=== PATIENT | male | born 1945 | race Two or more races ===

== ENCOUNTER 2016-12-11 11:35 | Inpatient (IN) | payer OTHER ==
[~2016-12-11] VITALS: Ht 177.8 cm; Wt 101.6 kg
[2016-12-11 12:37] LABS: Basophils # (auto) 0 uL; Basophils % (auto) 0.2 % (0.0-2.0); Eosinophils # (auto) 0 uL; Eosinophils % (auto) 0.2 % (0.0-7.0); Hematocrit 49.2 % (41.0-53.0); Hemoglobin 16.5 g/dL (13.5-17.5); Lymphocytes # (auto) 0.8 uL; Lymphocytes % (auto) 11.8 % (10.0-50.0); Mean Corpuscular Hemoglobin 30.1 pg (28.0-32.0); Mean Corpuscular Hgb Conc. 33.5 g/dL (32.0-36.0); Mean Corpuscular Volume 89.9 fL (80.0-100.0); Mean Platelet Volume 9.2 fL (7.4-10.4); Monocytes # (auto) 0.5 uL; Monocytes % (auto) 7.9 % (0.0-12.0); Neutrophils # (auto) 5.1 uL; Neutrophils % (auto) 79.9 % (37.0-80.0); Platelet Count (auto) 156 10^3/uL (140-450); White Blood Cell 6.4 10^3/uL (4.4-10.8)
[2016-12-11 12:59] LABS: Albumin 3.5 g/dL (3.4-5.0); BUN/Creatinine Ratio 13.5; Bilirubin, Total 0.4 mg/dL (0.2-1.0); Calcium 8.4 mg/dL (8.5-10.1); Magnesium 1.9 mg/dL (1.6-2.6); Potassium 3.4 mmol/L (3.5-5.1); Total Protein 7.2 g/dL (6.4-8.2)
[2016-12-11] MEDS ORDERED: ALBUTEROL SULF 2.5 MG/0.5ML(0.5%) NEB SOLN NEB STA (13:02)
[2016-12-11] MEDS ORDERED: cefTRIAXone 1GM/50ML D5W 50 ML IV ONE (13:15)
[2016-12-11] MEDS ORDERED: methylPREDNISolone SOD SUCC 125 MG/2 ML VL IV ONE (13:15)
[2016-12-11] MEDS ORDERED: IPRATROPIUM BROM 0.5 MG/2.5ML INH SOL NEB ONE (13:15)
[2016-12-11 13:30] LABS: REFLEX LACTIC ACID YES OR NO YES
[2016-12-11 14:02] LABS: B-Type Natriuretic Peptide 54.94 pg/mL (0-100)
[2016-12-11 14:07] LABS: Temperature: 22.5 C (20.0-25.0)
[2016-12-11] MEDS: SODIUM CHLORIDE 0.9% 1,000 ML IV SCH ×2 (15:51→19:29)
[2016-12-11] MEDS ORDERED: OSELTAMIVIR 75 MG CAP PO ONE (16:00)
[2016-12-11] MEDS ORDERED: POTASSIUM CHL 20 Meq TABLET PO ONE (16:00)
[2016-12-11] MEDS ORDERED: PROMETHAZINE HCL 25 MG/ML 1ML IV PRN (16:00)
[2016-12-11] MEDS ORDERED: ACETAMINOPHEN 500 MG TAB PO PRN (16:00)
[2016-12-11] MEDS ORDERED: NITROGLYCERIN 0.4 MG SL TAB SL PRN (16:00)
[2016-12-11] MEDS ORDERED: TEMAZEPAM 15 MG CAP PO PRN (16:00)
[2016-12-11] MEDS ORDERED: LACTULOSE 20Gm/30ML SOLN PO PRN (16:00)
[2016-12-11] MEDS ORDERED: MORPHINE SULF INJ 2 MG/ML SYRINGE 1ML IV PRN ×2 (16:00)
[2016-12-11] MEDS ORDERED: ALBUTEROL SULF 2.5 MG/0.5ML(0.5%) NEB SOLN NEB PRN (16:00)
[2016-12-11] MEDS ORDERED: HYDROcodone-ACET 5/325MG TAB PO PRN (16:00)
[2016-12-11] MEDS: ENOXAPARIN SOD 40 MG/0.4 ML SYRINGE SC SCH (16:04)
[2016-12-11] MEDS ORDERED: DOXYCYCLINE HYC 100MG/250ML 250 ML IV ONE (16:15)
[2016-12-11] MEDS ORDERED: NICOTINE 21MG/24 HR TOPICAL PATCH TD ONE (17:45)
[2016-12-11] MEDS: methylPREDNISolone SOD SUCC 40 MG/ML VL IV SCH (18:11)
[2016-12-11] MEDS: ALBUTEROL SULF 2.5 MG/0.5ML(0.5%) NEB SOLN NEB SCH (19:15)
[2016-12-11] MEDS: IPRATROPIUM BROM 0.5 MG/2.5ML INH SOL NEB SCH (19:15)
[2016-12-11 20:35] VITALS: BP 105/66
[2016-12-11] MEDS ORDERED: PNEUMOCOCCAL VACC POLYS 25 MCG/0.5 ML VIAL IM SCH (22:15)
[2016-12-11] MEDS: OSELTAMIVIR 75 MG CAP PO SCH (22:17)
[2016-12-11 23:10] LABS: Urine RBC None Seen /hpf (0 - 3)
[2016-12-11 23:21] LABS: Urine Bilirubin Negative (Negative); Urine Blood Negative /uL (Negative); Urine Color Yellow (Yellow); Urine Ketone Negative (Negative); Urine Nitrite Negative (Negative); Urine Squamous Epithelial Cell FEW /hpf (<5); Urine Urobilinogen Normal (Negative)
[2016-12-11 23:22] LABS: Urine Glucose 4+ mg/dL (Normal)
[2016-12-12] MEDS: methylPREDNISolone SOD SUCC 40 MG/ML VL IV SCH ×5 (00:37→23:56)
[2016-12-12] MEDS: IPRATROPIUM BROM 0.5 MG/2.5ML INH SOL NEB SCH ×4 (01:00→18:35)
[2016-12-12] MEDS: ALBUTEROL SULF 2.5 MG/0.5ML(0.5%) NEB SOLN NEB SCH ×4 (01:00→18:35)
[2016-12-12 04:38] VITALS: BP 118/80
[2016-12-12] MEDS: DOXYCYCLINE HYC 100MG/250ML 250 ML IV SCH ×2 (05:39→18:04)
[2016-12-12] MEDS ORDERED: INFLUENZA QUAD 2016-2017 0.5 ML SYRG IM ONE (06:45)
[2016-12-12 08:00] VITALS: BP 142/88
[2016-12-12] MEDS ORDERED: ALPR0.25 PO ×2 (08:44→08:48)
[2016-12-12] MEDS ORDERED: ATOR20TA PO (08:44)
[2016-12-12] MEDS ORDERED: LISI-646 PO (08:44)
[2016-12-12] MEDS: OSELTAMIVIR 75 MG CAP PO SCH ×2 (09:57→21:40)
[2016-12-12] MEDS: ENOXAPARIN SOD 40 MG/0.4 ML SYRINGE SC SCH (09:58)
[2016-12-12 11:57] VITALS: BP 142/88
[2016-12-12] MEDS ORDERED: LISINOPRIL 20 MG TAB PO ONE (12:45)
[2016-12-12 13:00] VITALS: BP 133/79
[2016-12-12] MEDS: LORazepam 0.5 MG TAB PO PRN (14:09)
[2016-12-12 17:00] VITALS: BP 119/81
[2016-12-12] MEDS: SODIUM CHLORIDE 0.9% 1,000 ML IV SCH (18:11)
[2016-12-12] MEDS ORDERED: NICOTINE 14 MG/24HR TOPICAL PATCH TD ONE (18:15)
[2016-12-12 21:45] VITALS: BP 136/83
[2016-12-12] MEDS ORDERED: ATORVASTATIN 20 MG TAB PO SCH (22:00)
[2016-12-13] MEDS: ALBUTEROL SULF 2.5 MG/0.5ML(0.5%) NEB SOLN NEB SCH ×2 (00:13→07:29)
[2016-12-13] MEDS: IPRATROPIUM BROM 0.5 MG/2.5ML INH SOL NEB SCH ×2 (00:13→07:29)
[2016-12-13 04:36] VITALS: BP 114/76
[2016-12-13] MEDS: SODIUM CHLORIDE 0.9% 1,000 ML IV SCH (04:58)
[2016-12-13] MEDS: DOXYCYCLINE HYC 100MG/250ML 250 ML IV SCH (05:34)
[2016-12-13] MEDS: methylPREDNISolone SOD SUCC 40 MG/ML VL IV SCH ×2 (05:34→12:00)
[2016-12-13 08:00] VITALS: BP 143/93
[2016-12-13] MEDS ORDERED: LISINOPRIL 20 MG TAB PO SCH (10:00)
[2016-12-13] MEDS ORDERED: POTASSIUM CHL 20 Meq TABLET PO ONE (10:00)
[2016-12-13] MEDS ORDERED: NICOTINE 14 MG/24HR TOPICAL PATCH TD SCH (10:00)
[2016-12-13 10:05] VITALS: BP 133/73
[2016-12-13] MEDS: OSELTAMIVIR 75 MG CAP PO SCH (10:20)
[2016-12-13] MEDS: ENOXAPARIN SOD 40 MG/0.4 ML SYRINGE SC SCH (10:21)
[2016-12-13] MEDS: LORazepam 0.5 MG TAB PO PRN (10:40)
== END 2016-12-13 11:07 | disposition home or self-care (01) | DRG 190 ==
LOC: ER 11:38 → TELE-WESTW 11:39 → WEST WING 12-12 02:14 → TELE-WESTW 12-12 10:51
PROVIDERS: ADMIT Internal Medicine; ATTEND Family Medicine
DX: J44.0 Chronic obstructive pulmonary disease with (acute) lower respiratory infection (principal); J18.9 Pneumonia, unspecified organism; J10.00 Influenza due to other identified influenza virus with unspecified type of pneumonia; E87.1 Hypo-osmolality and hyponatremia; J44.1 Chronic obstructive pulmonary disease with (acute) exacerbation; E87.6 Hypokalemia; E11.65 Type 2 diabetes mellitus with hyperglycemia; F41.9 Anxiety disorder, unspecified; E78.5 Hyperlipidemia, unspecified; I10 Essential (primary) hypertension; F17.210 Nicotine dependence, cigarettes, uncomplicated; Z82.49 Family history of ischemic heart disease and other diseases of the circulatory system; Z83.3 Family history of diabetes mellitus; Z23 Encounter for immunization
CPT/HCPCS: 36415; 36600; 71020; 80053; 81001; 82805; 83605; 83735; 83880; 84484; 85025; 85049; 87040; 87070; 87205; 87400; 93005; 94640; 96365; 96366; 96367; 96375; J0696; J3490

== ENCOUNTER → 2017-03-01 | Outpatient (CLI) | payer OTHER ==
[~2017-03-01] MED LIST: ALPR0.25 PO; ATOR20TA PO; LISI-646 PO
[2017-03-01 12:05] LABS: BUN/Creatinine Ratio 16.8; Potassium 4.3 mmol/L (3.5-5.1)
== END | disposition home or self-care (01) ==
LOC: LAB 11:19
PROVIDERS: ATTEND Internal Medicine
DX: E78.2 Mixed hyperlipidemia (principal); I10 Essential (primary) hypertension
CPT/HCPCS: 36415; 80048; 83036

== ENCOUNTER → 2017-04-04 | Outpatient (CLI) | payer OTHER ==
[~2017-04-04] MED LIST changes: +ALBUTEROL SULF 2.5 MG/0.5ML(0.5%) NEB SOLN ONE
== END | disposition home or self-care (01) ==
LOC: RT 11:06
PROVIDERS: ATTEND Internal Medicine
DX: J44.9 Chronic obstructive pulmonary disease, unspecified (principal)
CPT/HCPCS: 94060

== ENCOUNTER → 2018-02-07 | Outpatient (CLI) | payer OTHER ==
[~2018-02-07] MED LIST changes: -ALBUTEROL SULF 2.5 MG/0.5ML(0.5%) NEB SOLN ONE
[2018-02-07 10:06] LABS: Basophils # (auto) 0.1 uL; Basophils % (auto) 0.7 % (0.0-2.0); Eosinophils # (auto) 0.1 uL; Eosinophils % (auto) 0.8 % (0.0-7.0); Hematocrit 47.9 % (41.0-53.0); Hemoglobin 16.4 g/dL (13.5-17.5); Lymphocytes % (auto) 38.4 % (10.0-50.0); Mean Corpuscular Hemoglobin 31.3 pg (28.0-32.0); Mean Corpuscular Hgb Conc. 34.3 g/dL (32.0-36.0); Mean Corpuscular Volume 91.3 fL (80.0-100.0); Monocytes # (auto) 0.6 uL; Monocytes % (auto) 7.8 % (0.0-12.0); Neutrophils # (auto) 4.1 uL; Neutrophils % (auto) 52.3 % (37.0-80.0); Nucleated Red Blood Cells % 0.1 %; Platelet Count (auto) 323 10^3/uL (140-450); Red Blood Cells 5.25 10^6/uL (4.5-5.90); Red Cell Distribution Width 13.8 % (11.8-14.3); White Blood Cell 7.9 10^3/uL (4.4-10.8)
[2018-02-07 10:26] LABS: Albumin 3.8 g/dL (3.4-5.0); BUN/Creatinine Ratio 20.2; Bilirubin, Total 0.7 mg/dL (0.2-1.0); Calcium 8.6 mg/dL (8.5-10.1); Potassium 4.2 mmol/L (3.5-5.1); Total Protein 7.5 g/dL (6.4-8.2)
== END | disposition home or self-care (01) ==
LOC: LAB 09:48
PROVIDERS: ATTEND Physician Assistant
DX: J42 Unspecified chronic bronchitis (principal); E78.2 Mixed hyperlipidemia; R73.03 Prediabetes
CPT/HCPCS: 36415; 80053; 80061; 83036; 85025

== ENCOUNTER → 2018-03-30 | Outpatient (CLI) | payer OTHER | END | disposition home or self-care (01) | LOC: LAB 14:38 | PROVIDERS: ATTEND Physician Assistant | DX: I10 Essential (primary) hypertension (principal); F41.1 Generalized anxiety disorder; E78.2 Mixed hyperlipidemia; R35.1 Nocturia; R73.03 Prediabetes; R53.82 Chronic fatigue, unspecified | CPT/HCPCS: 36415; 84153; 84403 ==

== ENCOUNTER → 2018-11-27 | Outpatient (CLI) | payer OTHER ==
[2018-11-27 09:58] LABS: Basophils # (auto) 0.1 uL; Basophils % (auto) 0.7 % (0.0-2.0); Eosinophils # (auto) 0.1 uL; Eosinophils % (auto) 1.3 % (0.0-7.0); Hematocrit 50.7 % (41.0-53.0); Hemoglobin 16.9 g/dL (13.5-17.5); Lymphocytes # (auto) 3.1 uL; Lymphocytes % (auto) 37.2 % (10.0-50.0); Mean Corpuscular Hemoglobin 30.1 pg (28.0-32.0); Mean Corpuscular Hgb Conc. 33.3 g/dL (32.0-36.0); Mean Corpuscular Volume 90.6 fL (80.0-100.0); Monocytes # (auto) 0.5 uL; Neutrophils # (auto) 4.5 uL; Neutrophils % (auto) 54.8 % (37.0-80.0); Nucleated Red Blood Cells % 0.2 %; Platelet Count (auto) 361 10^3/uL (140-450); White Blood Cell 8.2 10^3/uL (4.4-10.8)
[2018-11-27 10:20] LABS: Albumin 3.6 g/dL (3.4-5.0); BUN/Creatinine Ratio 20.4; Calcium 8.6 mg/dL (8.5-10.1); Potassium 3.8 mmol/L (3.5-5.1)
[2018-11-27 10:24] LABS: Bilirubin, Total 0.4 mg/dL (0.2-1.0); Total Protein 7.1 g/dL (6.4-8.2)
== END | disposition home or self-care (01) ==
LOC: LAB 09:36
PROVIDERS: ATTEND Physician Assistant
DX: Z12.5 Encounter for screening for malignant neoplasm of prostate (principal); I10 Essential (primary) hypertension; J44.9 Chronic obstructive pulmonary disease, unspecified; R73.03 Prediabetes; E78.2 Mixed hyperlipidemia; F10.180 Alcohol abuse with alcohol-induced anxiety disorder
CPT/HCPCS: 36415; 80053; 80061; 83036; 84153; 85025

== ENCOUNTER → 2020-01-21 | Outpatient (CLI) | payer OTHER ==
[2020-01-21 08:10] LABS: Eosinophils # (auto) 0.2 uL; Hemoglobin 17.7 g/dL (13.5-17.5); Monocytes # (auto) 0.5 uL; Nucleated Red Blood Cells % 0.2 %
[2020-01-21 08:12] LABS: Basophils # (auto) 0.1 uL; Basophils % (auto) 0.8 % (0.0-2.0); Eosinophils % (auto) 2.4 % (0.0-7.0); Hematocrit 51.9 % (41.0-53.0); Lymphocytes # (auto) 2.2 uL; Lymphocytes % (auto) 31.6 % (10.0-50.0); Mean Corpuscular Hemoglobin 30.7 pg (28.0-32.0); Mean Corpuscular Volume 90.3 fL (80.0-100.0); Monocytes % (auto) 6.6 % (0.0-12.0); Neutrophils # (auto) 4.2 uL; Neutrophils % (auto) 58.6 % (37.0-80.0); Platelet Count (auto) 311 10^3/uL (140-450); Red Blood Cells 5.75 10^6/uL (4.5-5.90); Red Cell Distribution Width 14.6 % (11.8-14.3); White Blood Cell 7.1 10^3/uL (4.4-10.8)
[2020-01-21 08:58] LABS: Albumin 3.7 g/dL (3.4-5.0); Calcium 8.6 mg/dL (8.5-10.1)
[2020-01-21 09:02] LABS: BUN/Creatinine Ratio 13.3; Bilirubin, Total 0.7 mg/dL (0.2-1.0); Total Protein 7.2 g/dL (6.4-8.2)
== END | disposition home or self-care (01) ==
LOC: LAB 07:27
PROVIDERS: ATTEND Physician Assistant
DX: E78.2 Mixed hyperlipidemia (principal); I10 Essential (primary) hypertension; R35.1 Nocturia; R53.82 Chronic fatigue, unspecified; F10.180 Alcohol abuse with alcohol-induced anxiety disorder
CPT/HCPCS: 36415; 80053; 80061; 84153; 85025

== ENCOUNTER → 2020-09-16 | Outpatient (CLI) | payer OTHER ==
[~2020-09-16] MED LIST changes: +ALBUTEROL SULF 2.5 MG/0.5ML(0.5%) NEB SOLN ONE
== END | disposition home or self-care (01) ==
LOC: RT 09:06
PROVIDERS: ATTEND Internal Medicine Pulmonary Disease
DX: J44.9 Chronic obstructive pulmonary disease, unspecified (principal)
CPT/HCPCS: 94060; 94618; 94727; 94729

== ENCOUNTER → 2021-02-11 | Outpatient (CLI) | payer OTHER ==
[~2021-02-11] MED LIST changes: -ALBUTEROL SULF 2.5 MG/0.5ML(0.5%) NEB SOLN ONE
== END | disposition home or self-care (01) ==
LOC: LAB 12:15
PROVIDERS: ATTEND Physician Assistant
DX: L57.0 Actinic keratosis (principal)

== ENCOUNTER → 2021-02-25 | Outpatient (CLI) | payer OTHER ==
[2021-02-25 10:46] LABS: Basophils # (auto) 0.1 10 ^3/uL (0-0.2); Eosinophils # (auto) 0.1 10 ^3/uL (0-0.8); Eosinophils % (auto) 0.9 % (0.0-7.0); Hematocrit 49.8 % (41.0-53.0); Hemoglobin 17.2 g/dL (13.5-17.5); Lymphocytes # (auto) 1.5 10 ^3/uL (0.4-5.4); Mean Corpuscular Hemoglobin 32.1 pg (28.0-32.0); Mean Corpuscular Hgb Conc. 34.5 g/dL (32.0-36.0); Mean Corpuscular Volume 93.1 fL (80.0-100.0); Monocytes # (auto) 0.5 10 ^3/uL (0-1.3); Neutrophils # (auto) 4.4 10 ^3/uL (1.6-8.6); Neutrophils % (auto) 67.1 % (37.0-80.0); Nucleated Red Blood Cells % 0.2 %; Platelet Count (auto) 300 10^3/uL (140-450); Red Blood Cells 5.35 10^6/uL (4.5-5.90); Red Cell Distribution Width 15.2 % (11.8-14.3); White Blood Cell 6.6 10^3/uL (4.4-10.8)
[2021-02-25 11:14] LABS: Calcium 8.5 mg/dL (8.5-10.1); Potassium 4.3 mmol/L (3.5-5.1)
[2021-02-25 11:23] LABS: Albumin 3.8 g/dL (3.4-5.0); BUN/Creatinine Ratio 21.8; Bilirubin, Total 0.5 mg/dL (0.2-1.0); Total Protein 7.5 g/dL (6.4-8.2)
== END | disposition home or self-care (01) ==
LOC: LAB 10:35
PROVIDERS: ATTEND Physician Assistant
DX: I10 Essential (primary) hypertension (principal); R35.1 Nocturia; E78.2 Mixed hyperlipidemia; J44.9 Chronic obstructive pulmonary disease, unspecified
CPT/HCPCS: 36415; 80053; 80061; 84153; 85025

== ENCOUNTER 2021-10-18 15:29 | Inpatient (IN) | payer OTHER ==
[~2021-10-18] VITALS: Ht 175.3 cm; Wt 77.1 kg
[~2021-10-18 15:29] MED LIST changes: -LISI-646 PO; +LISI20TA28 PO
[2021-10-18 17:19] LABS: Basophils # (auto) 0 10 ^3/uL (0-0.2); Eosinophils # (auto) 0 10 ^3/uL (0-0.8); Lymphocytes # (auto) 2.1 10 ^3/uL (0.4-5.4); Mean Corpuscular Hemoglobin 30.9 pg (28.0-32.0); Monocytes # (auto) 0.7 10 ^3/uL (0-1.3); Nucleated Red Blood Cells % 0.2 %
[2021-10-18 17:21] LABS: Basophils % (auto) 0.6 % (0.0-2.0); Eosinophils % (auto) 0.3 % (0.0-7.0); Hematocrit 54.3 % (41.0-53.0); Hemoglobin 18.2 g/dL (13.5-17.5); Lymphocytes % (auto) 25.2 % (10.0-50.0); Mean Corpuscular Hgb Conc. 33.6 g/dL (32.0-36.0); Mean Corpuscular Volume 92.1 fL (80.0-100.0); Monocytes % (auto) 8.2 % (0.0-12.0); Neutrophils # (auto) 5.6 10 ^3/uL (1.6-8.6); Neutrophils % (auto) 65.7 % (37.0-80.0); Red Cell Distribution Width 14.5 % (11.8-14.3); White Blood Cell 8.5 10^3/uL (4.4-10.8)
[2021-10-18 17:37] LABS: Albumin 3.4 g/dL (3.4-5.0); Anion Gap 10 (5-15); Blood Urea Nitrogen 23 mg/dL (7-18); Calcium 8.8 mg/dL (8.5-10.1); Carbon Dioxide 24 mmol/L (21-32); Chloride 104 mmol/L (98-107); Glucose 99 mg/dL (74-106); Potassium 3.7 mmol/L (3.5-5.1); Sodium 138 mmol/L (136-145)
[2021-10-18 17:39] LABS: Alanine Aminotransferase 35 U/L (16-61); Aspartate Aminotransferase 16 U/L (15-37); GFR African American 95 mL/min; GFR Non-African American 79 mL/min
[2021-10-18 17:40] LABS: Alkaline Phosphatase 69 U/L (45-117); Bilirubin, Total 0.7 mg/dL (0.2-1.0); Total Protein 7.2 g/dL (6.4-8.2)
[2021-10-18 18:01] LABS: BUN/Creatinine Ratio 23.2
[2021-10-19] VITALS (7 sets, daily range): BP systolic 110–138; BP diastolic 74–84
[2021-10-19] MEDS ORDERED: ALBUTEROL SULF 2.5 MG/0.5ML(0.5%) NEB SOLN NEB ONE (01:15)
[2021-10-19] MEDS ORDERED: predniSONE 20 MG TAB PO ONE (01:15)
[2021-10-19] MEDS ORDERED: IPRATROPIUM BROM 0.5 MG/2.5ML INH SOL NEB ONE (01:15)
[2021-10-19] MEDS ORDERED: ONDANSETRON HCL 4 MG/2 ML VIAL IV PRN (04:45)
[2021-10-19] MEDS ORDERED: ACETAMINOPHEN 325 MG TAB PO PRN (04:45)
[2021-10-19] MEDS ORDERED: ALBUTEROL SULF 2.5 MG/0.5ML(0.5%) NEB SOLN NEB PRN (04:45)
[2021-10-19] MEDS ORDERED: IPRATROPIUM BROM 0.5 MG/2.5ML INH SOL NEB PRN (04:45)
[2021-10-19] MEDS ORDERED: cefTRIAXone 1GM/50ML D5W 50 ML IV ONE (05:30)
[2021-10-19] MEDS ORDERED: AZITHROMYCIN 500MG/ 250ML 250 ML IV ONE (05:30)
[2021-10-19] MEDS ORDERED: ALBUAER3 IN (07:51)
[2021-10-19] MEDS ORDERED: IPRIH INH (07:51)
[2021-10-19] MEDS ORDERED: METO25TA5 PO (07:51)
[2021-10-19] MEDS: ENOXAPARIN SOD 40 MG/0.4 ML SYRINGE SC SCH (09:07)
[2021-10-19] MEDS ORDERED: PANTOPRAZOLE 40 MG TAB PO SCH (10:00)
[2021-10-19] MEDS: LISINOPRIL 20 MG TAB PO SCH (11:07)
[2021-10-19] MEDS: methylPREDNISolone SOD SUCC 40 MG/ML VL IV SCH ×2 (11:08→22:00)
[2021-10-19] MEDS: IPRATROPIUM BROM 0.5 MG/2.5ML INH SOL NEB SCH ×3 (14:00→22:05)
[2021-10-19] MEDS: ALBUTEROL SULF 2.5 MG/0.5ML(0.5%) NEB SOLN NEB SCH ×3 (14:00→22:05)
[2021-10-19] MEDS ORDERED: AMLO-489 PO (15:06)
[2021-10-19] MEDS: ALPRAZolam 0.25 MG TAB PO PRN (16:13)
[2021-10-19] MEDS ORDERED: ATORVASTATIN 20 MG TAB PO SCH (22:00)
[2021-10-20] VITALS (7 sets, daily range): BP systolic 97–128; BP diastolic 55–84
[2021-10-20] MEDS: ALBUTEROL SULF 2.5 MG/0.5ML(0.5%) NEB SOLN NEB SCH ×6 (02:25→22:36)
[2021-10-20] MEDS: IPRATROPIUM BROM 0.5 MG/2.5ML INH SOL NEB SCH ×6 (02:25→22:36)
[2021-10-20 06:26] LABS: Basophils # (auto) 0 10 ^3/uL (0-0.2); Eosinophils # (auto) 0 10 ^3/uL (0-0.8); Hematocrit 47.3 % (41.0-53.0); Hemoglobin 16.3 g/dL (13.5-17.5); Lymphocytes # (auto) 0.8 10 ^3/uL (0.4-5.4); Lymphocytes % (auto) 7.4 % (10.0-50.0); Mean Corpuscular Hgb Conc. 34.4 g/dL (32.0-36.0); Mean Corpuscular Volume 92.9 fL (80.0-100.0); Monocytes # (auto) 0.2 10 ^3/uL (0-1.3); Neutrophils # (auto) 9.2 10 ^3/uL (1.6-8.6); Neutrophils % (auto) 90.6 % (37.0-80.0); Nucleated Red Blood Cells % 0.1 %; Red Blood Cells 5.09 10^6/uL (4.5-5.90); Red Cell Distribution Width 14.2 % (11.8-14.3); White Blood Cell 10.1 10^3/uL (4.4-10.8)
[2021-10-20 06:47] LABS: Potassium 4.5 mmol/L (3.5-5.1)
[2021-10-20 07:02] LABS: BUN/Creatinine Ratio 26.7; Calcium 8.4 mg/dL (8.5-10.1); Magnesium 3.3 mg/dL (1.6-2.6)
[2021-10-20] MEDS: methylPREDNISolone SOD SUCC 40 MG/ML VL IV SCH ×2 (09:18→22:05)
[2021-10-20] MEDS: LISINOPRIL 20 MG TAB PO SCH (09:18)
[2021-10-20] MEDS: AZITHROMYCIN 250 MG TAB PO SCH (09:18)
[2021-10-20] MEDS: ENOXAPARIN SOD 40 MG/0.4 ML SYRINGE SC SCH (09:19)
[2021-10-20] MEDS ORDERED: CHOLECALCIFEROL (VITD3) 2,000 UNIT CAP/TAB PO ONE (11:30)
[2021-10-20] MEDS ORDERED: DEXTROSE (50%) 50ML SYRG IV PRN (11:30)
[2021-10-20] MEDS ORDERED: NICOTINE 14 MG/24HR TOPICAL PATCH TD ONE (12:30)
[2021-10-20] MEDS: ACCU-CHEK COMFORT CURVE STRIP VI SCH ×3 (15:25→22:00)
[2021-10-20] MEDS: InsuLIN REG 1unit/0.01ml Soln (100units/ml) SC SCH ×3 (15:35→22:00)
[2021-10-21] MEDS: IPRATROPIUM BROM 0.5 MG/2.5ML INH SOL NEB SCH ×6 (02:27→22:06)
[2021-10-21] MEDS: ALBUTEROL SULF 2.5 MG/0.5ML(0.5%) NEB SOLN NEB SCH ×6 (02:27→22:06)
[2021-10-21 05:00] VITALS: BP 117/68
[2021-10-21] MEDS: ACCU-CHEK COMFORT CURVE STRIP VI SCH ×4 (06:59→21:51)
[2021-10-21] MEDS: InsuLIN REG 1unit/0.01ml Soln (100units/ml) SC SCH ×4 (06:59→21:51)
[2021-10-21 08:00] VITALS: BP 130/79
[2021-10-21 09:00] VITALS: BP 130/79
[2021-10-21] MEDS: methylPREDNISolone SOD SUCC 40 MG/ML VL IV SCH ×2 (09:39→22:17)
[2021-10-21] MEDS: CHOLECALCIFEROL (VITD3) 2,000 UNIT CAP/TAB PO SCH (09:40)
[2021-10-21] MEDS: NICOTINE 14 MG/24HR TOPICAL PATCH TD SCH (09:41)
[2021-10-21] MEDS: ENOXAPARIN SOD 40 MG/0.4 ML SYRINGE SC SCH (09:41)
[2021-10-21] MEDS: LISINOPRIL 20 MG TAB PO SCH (09:41)
[2021-10-21] MEDS: AZITHROMYCIN 250 MG TAB PO SCH (09:41)
[2021-10-21 13:00] VITALS: BP 127/77
[2021-10-21 17:00] VITALS: BP 154/87
[2021-10-21 21:49] VITALS: BP 142/86
[2021-10-22] VITALS (7 sets, daily range): BP systolic 114–147; BP diastolic 71–86
[2021-10-22] MEDS: ALBUTEROL SULF 2.5 MG/0.5ML(0.5%) NEB SOLN NEB SCH ×6 (03:51→22:21)
[2021-10-22] MEDS: IPRATROPIUM BROM 0.5 MG/2.5ML INH SOL NEB SCH ×6 (03:52→22:21)
[2021-10-22] MEDS: ACCU-CHEK COMFORT CURVE STRIP VI SCH ×4 (06:09→21:33)
[2021-10-22] MEDS: InsuLIN REG 1unit/0.01ml Soln (100units/ml) SC SCH ×4 (06:18→21:33)
[2021-10-22] MEDS: methylPREDNISolone SOD SUCC 40 MG/ML VL IV SCH ×2 (09:09→21:37)
[2021-10-22] MEDS: CHOLECALCIFEROL (VITD3) 2,000 UNIT CAP/TAB PO SCH (09:09)
[2021-10-22] MEDS: AZITHROMYCIN 250 MG TAB PO SCH (09:10)
[2021-10-22] MEDS: LISINOPRIL 20 MG TAB PO SCH (09:10)
[2021-10-22] MEDS: ENOXAPARIN SOD 40 MG/0.4 ML SYRINGE SC SCH (09:11)
[2021-10-22] MEDS: NICOTINE 14 MG/24HR TOPICAL PATCH TD SCH (09:11)
[2021-10-22] MEDS ORDERED: ARTIFICIAL TEARS 15ml EACHEYE PRN (11:00)
[2021-10-22] MEDS ORDERED: IOHEXOL 350 MG/ML 100ML IJ ONE (13:00)
[2021-10-22] MEDS ORDERED: ERGOCALCIFEROL 50,000 UNIT(1.25MG) CAP PO SCH (14:45)
[2021-10-22] MEDS: DOCUSATE SOD 100 MG CAP PO SCH ×2 (16:38→21:37)
[2021-10-22] MEDS: ALPRAZolam 0.25 MG TAB PO PRN (18:18)
[2021-10-23] MEDS: ALBUTEROL SULF 2.5 MG/0.5ML(0.5%) NEB SOLN NEB SCH ×4 (02:23→14:25)
[2021-10-23] MEDS: IPRATROPIUM BROM 0.5 MG/2.5ML INH SOL NEB SCH ×4 (02:23→14:25)
[2021-10-23 05:00] VITALS: BP 124/80
[2021-10-23] MEDS: ACCU-CHEK COMFORT CURVE STRIP VI SCH ×2 (06:12→12:12)
[2021-10-23] MEDS: InsuLIN REG 1unit/0.01ml Soln (100units/ml) SC SCH ×2 (06:18→12:12)
[2021-10-23] MEDS: methylPREDNISolone SOD SUCC 40 MG/ML VL IV SCH (08:46)
[2021-10-23] MEDS: DOCUSATE SOD 100 MG CAP PO SCH (08:47)
[2021-10-23] MEDS: CHOLECALCIFEROL (VITD3) 2,000 UNIT CAP/TAB PO SCH (08:47)
[2021-10-23] MEDS: LISINOPRIL 20 MG TAB PO SCH (08:48)
[2021-10-23] MEDS: ALPRAZolam 0.25 MG TAB PO PRN (08:49)
[2021-10-23] MEDS: AZITHROMYCIN 250 MG TAB PO SCH (08:49)
[2021-10-23] MEDS: NICOTINE 14 MG/24HR TOPICAL PATCH TD SCH (08:49)
[2021-10-23] MEDS: ENOXAPARIN SOD 40 MG/0.4 ML SYRINGE SC SCH (08:58)
[2021-10-23 09:00] VITALS: BP 118/85
[2021-10-23] MEDS ORDERED: CHOL20007 PO (11:37)
[2021-10-23] MEDS ORDERED: ALBUAER3 IN (11:37)
[2021-10-23] MEDS ORDERED: PRED20TA2 PO (11:37)
[2021-10-23] MEDS ORDERED: NIC21P TOP (11:37)
[2021-10-23 12:23] VITALS: BP 149/80
[2021-10-23 13:00] VITALS: BP 149/80
[2021-10-23 14:32] LABS: Calcium 8.7 mg/dL (8.5-10.1); Potassium 4.6 mmol/L (3.5-5.1)
[2021-10-23 14:34] LABS: BUN/Creatinine Ratio 28.3
== END 2021-10-23 15:25 | disposition home or self-care (01) | DRG 189 ==
LOC: EDBD 15:29 → ER 15:29 → WEST WING 15:30 → ER 10-19 06:20 → WEST WING 10-19 07:30
PROVIDERS: ADMIT Nurse Practitioner; ATTEND Internal Medicine
DX: J96.21 Acute and chronic respiratory failure with hypoxia (principal); J44.1 Chronic obstructive pulmonary disease with (acute) exacerbation; I10 Essential (primary) hypertension; E78.5 Hyperlipidemia, unspecified; Z20.822 Contact with and (suspected) exposure to COVID-19; F41.9 Anxiety disorder, unspecified; F17.210 Nicotine dependence, cigarettes, uncomplicated; E55.9 Vitamin D deficiency, unspecified; Z71.6 Tobacco abuse counseling; Z80.9 Family history of malignant neoplasm, unspecified; Z79.899 Other long term (current) drug therapy
CPT/HCPCS: 36415; 36600; 71045; 71275; 80048; 80053; 80061; 82306; 82728; 82805; 82962; 83036; 83735; 83880; 84484; 85025; 85379; 87426; 87804; 93005; 93306; 94640; 96365; 97110; 97116; 97163; 97530; G0378; J0696; J1815

== ENCOUNTER → 2022-09-01 | Outpatient (CLI) | payer OTHER ==
[~2022-09-01] MED LIST changes: +ALBUAER3 IN; +IPRIH INH; +METO25TA5 PO; +NIC21P TOP; +PRED20TA2 PO
[2022-09-01 08:13] LABS: Basophils # (auto) 0.1 10 ^3/uL (0-0.2); Basophils % (auto) 0.8 % (0.0-2.0); Eosinophils # (auto) 0.1 10 ^3/uL (0-0.8); Eosinophils % (auto) 1.2 % (0.0-7.0); Hematocrit 49.2 % (41.0-53.0); Hemoglobin 16.7 g/dL (13.5-17.5); Lymphocytes % (auto) 36.3 % (10.0-50.0); Mean Corpuscular Hemoglobin 30.9 pg (28.0-32.0); Mean Corpuscular Hgb Conc. 33.9 g/dL (32.0-36.0); Monocytes # (auto) 0.6 10 ^3/uL (0-1.3); Neutrophils # (auto) 4.6 10 ^3/uL (1.6-8.6); Neutrophils % (auto) 54.7 % (37.0-80.0); Nucleated Red Blood Cells % 0.1 %; Red Blood Cells 5.41 10^6/uL (4.5-5.90); Red Cell Distribution Width 13.1 % (11.8-14.3); White Blood Cell 8.3 10^3/uL (4.4-10.8)
[2022-09-01 08:18] LABS: Urine Blood Negative /uL (Negative)
[2022-09-01 09:01] LABS: Albumin 3.7 g/dL (3.4-5.0); Potassium 4.2 mmol/L (3.5-5.1)
[2022-09-01 09:09] LABS: BUN/Creatinine Ratio 13.1; Bilirubin, Total 0.9 mg/dL (0.2-1.0); Calcium 8.7 mg/dL (8.5-10.1); Total Protein 6.8 g/dL (6.4-8.2)
[2022-09-01 09:21] LABS: Micro Albumin < 5.00 mg/L (0-30.0)
== END | disposition home or self-care (01) ==
LOC: LAB 07:56
PROVIDERS: ATTEND Nurse Practitioner Family
DX: Z00.00 Encounter for general adult medical examination without abnormal findings (principal); E11.21 Type 2 diabetes mellitus with diabetic nephropathy; J44.9 Chronic obstructive pulmonary disease, unspecified
CPT/HCPCS: 36415; 80053; 80061; 81003; 82043; 83036; 84439; 84443; 85025

== ENCOUNTER → 2023-05-04 | Outpatient (CLI) | payer OTHER ==
[~2023-05-04] MED LIST changes: -LISI20TA28 PO; +LISI20TA56 PO
[2023-05-04 07:19] LABS: Basophils # (auto) 0.1 10 ^3/uL (0-0.2); Basophils % (auto) 0.8 % (0.0-2.0); Eosinophils # (auto) 0.1 10 ^3/uL (0-0.8); Eosinophils % (auto) 1.5 % (0.0-7.0); Hematocrit 45.8 % (41.0-53.0); Hemoglobin 16.2 g/dL (13.5-17.5); Lymphocytes # (auto) 2.2 10 ^3/uL (0.4-5.4); Lymphocytes % (auto) 31.2 % (10.0-50.0); Mean Corpuscular Hemoglobin 31.9 pg (28.0-32.0); Mean Corpuscular Hgb Conc. 35.4 g/dL (32.0-36.0); Monocytes # (auto) 0.7 10 ^3/uL (0-1.3); Monocytes % (auto) 9.7 % (0.0-12.0); Neutrophils # (auto) 3.9 10 ^3/uL (1.6-8.6); Neutrophils % (auto) 56.8 % (37.0-80.0); Nucleated Red Blood Cells % 0.1 %; Red Cell Distribution Width 13.8 % (11.8-14.3); White Blood Cell 6.9 10^3/uL (4.4-10.8)
[2023-05-04 08:58] LABS: Potassium 4.3 mmol/L (3.5-5.1)
[2023-05-04 09:06] LABS: Albumin 3.9 g/dL (3.4-5.0); BUN/Creatinine Ratio 18.9 (10.0-20.0); Bilirubin, Total 0.7 mg/dL (0.2-1.0); Calcium 8.9 mg/dL (8.5-10.1); Total Protein 7.3 g/dL (6.4-8.2)
[2023-05-04 09:49] LABS: Creatinine, Urine 74 mg/dL (30.0-125.0); Micro Albumin < 5.00 mg/L (0-30.0)
== END | disposition home or self-care (01) ==
LOC: LAB 06:14
PROVIDERS: ATTEND Nurse Practitioner Family
DX: I10 Essential (primary) hypertension (principal); I70.0 Atherosclerosis of aorta; E11.21 Type 2 diabetes mellitus with diabetic nephropathy
CPT/HCPCS: 36415; 80053; 80061; 82043; 82570; 83036; 84439; 84443; 85025

== ENCOUNTER → 2023-06-17 | Outpatient (CLI) | payer OTHER | END | disposition home or self-care (01) | LOC: LAB 10:20 | PROVIDERS: ATTEND Family Medicine | DX: L82.1 Other seborrheic keratosis (principal) | CPT/HCPCS: 88302 ==

== ENCOUNTER → 2024-03-16 | Outpatient (CLI) | payer OTHER | END | disposition home or self-care (01) | LOC: LAB 13:28 | PROVIDERS: ATTEND Nurse Practitioner Family | DX: Z12.11 Encounter for screening for malignant neoplasm of colon (principal) | CPT/HCPCS: 82270 ==

== ENCOUNTER 2024-09-21 08:13 | Day surgery (SDC) | payer OTHER ==
[2024-09-19 12:28] LABS: Urine Bacteria None Seen /hpf (None Seen)
[2024-09-19 12:33] LABS: Basophils # (auto) 0.1 10 ^3/uL (0-0.2); Basophils % (auto) 0.7 % (0.0-2.0); Eosinophils # (auto) 0.1 10 ^3/uL (0-0.8); Eosinophils % (auto) 1.2 % (0.0-7.0); Hematocrit 49.5 % (41.0-53.0); Hemoglobin 16.9 g/dL (13.5-17.5); Lymphocytes # (auto) 2.5 10 ^3/uL (0.4-5.4); Lymphocytes % (auto) 30.4 % (10.0-50.0); Mean Corpuscular Hemoglobin 31.5 pg (28.0-32.0); Mean Corpuscular Hgb Conc. 34.2 g/dL (32.0-36.0); Mean Corpuscular Volume 92.1 fL (80.0-100.0); Monocytes # (auto) 0.6 10 ^3/uL (0-1.3); Monocytes % (auto) 7.5 % (0.0-12.0); Neutrophils # (auto) 4.9 10 ^3/uL (1.6-8.6); Neutrophils % (auto) 60.2 % (37.0-80.0); Nucleated Red Blood Cells % 0.1 %; Platelet Count (auto) 329 10^3/uL (140-450); Red Blood Cells 5.38 10^6/uL (4.5-5.90); Red Cell Distribution Width 14.6 % (11.8-14.3); White Blood Cell 8.1 10^3/uL (4.4-10.8)
[2024-09-19 12:47] LABS: INR 1.1 (0.9-1.15); Prothrombin Time 11.6 sec (9.3-11.8)
[2024-09-19 12:51] LABS: Urine Blood Negative /uL (Negative); Urine Clarity Clear (Clear); Urine Color Light-Yellow (Yellow); Urine Protein, UAD Negative (Negative); Urine Specific Gravity 1.017 (1.001-1.035); Urine Urobilinogen Normal (Negative); Urine WBC <1 /hpf (0 - 3); Urine pH 5.5 (5.0-9.0)
[2024-09-19 13:24] LABS: Alanine Aminotransferase 29 U/L (7-40); Albumin 4.4 g/dL (3.2-4.8); Alkaline Phosphatase 84 U/L (46-116); Anion Gap 6 (5-15); Aspartate Aminotransferase 19 U/L (13-40); BUN/Creatinine Ratio 13.6 (10.0-20.0); Blood Urea Nitrogen 15 mg/dL (9-23); Calcium 9.9 mg/dL (8.7-10.4); Carbon Dioxide 30 mmol/L (20-31); Chloride 104 mmol/L (98-107); Glucose 101 mg/dL (74-106); Potassium 4.2 mmol/L (3.5-5.1); Sodium 140 mmol/L (136-145)
[2024-09-19 13:25] LABS: Bilirubin, Total 0.7 mg/dL (0.2-1.0); Total Protein 7.4 g/dL (5.7-8.2)
[~2024-09-21] VITALS: Ht 175.3 cm; Wt 86.2 kg
[~2024-09-21 08:13] MED LIST changes: +AMLO1TAB22 PO; -NIC21P TOP; -PRED20TA2 PO
[2024-09-21 08:21] VITALS: TEMP 98.5
[2024-09-21] MEDS ORDERED: fentaNYL CITRATE 100 MCG/2 ML VL ONE (09:47)
[2024-09-21] MEDS ORDERED: PROPOFOL 10 MG/ML 20 ML IV ONE (09:48)
[2024-09-21] MEDS ORDERED: ePHEDrine SULFATE 50 MG/ML AMP ONE (10:04)
[2024-09-21 10:10] VITALS: PULSE 68; RESP 16; O2SAT 95
[2024-09-21 10:35] VITALS: BP 124/74; PULSE 63; RESP 12; O2SAT 92
--- NOTE | 2024-09-21 10:39 | DVHNC2 ---
Procedure - 09/21/24 Outpatient Procedure report: Procedure performed: 1. Colonoscopy with cold snare polypectomy under monitored anesthesia care 2. Colonoscopy with biopsy under monitored anesthesia care 3. Colonoscopy with Endoclip placement under monitored anesthesia care Preprocedure diagnoses: 1. Colon cancer screening Postprocedure diagnoses: 1. . Three 3 polyps measuring between 3 mm and 1 cm 2. 2+ internal hemorrhoids Anesthesiologist: Dr. Eddy Details of the procedure: Informed consent was obtained after risks, benefits, and alternatives, were discussed at length with the patient. The patient gave consent to the procedure as well as the medication used for anesthesia. The patient was placed in the left lateral decubitus position. Digital rectal exam showed internal hemorrhoids. An Olympus variable torsion adult colonoscope was inserted into the rectum advanced to the cecum. The cecum was identified by the ileocecal valve and the appendiceal orifice. The scope was then withdrawn. The prep was good with only small amounts of stool. There were no large polyps, masses, strictures, or arteriovenous malformations. The patient had one3 mm transverse colon polyp in another 3 mm rectal polyp removed with biopsy forceps completely. There was a 1 cm descending colon polyp removed with hot snare completely. One Endoclip was placed for small amount of oozing of blood. Retroflexion showed 2+ internal hemorrhoids. For the 6 minutes withdrawal time was noted. Patient tolerated the procedure well. Impression: 1. Three colon polyps ranging from 3 mm to 1 cm 2. 2+ internal hemorrhoids Recommendations: 1. Follow up in [facility] for procedure and pathology results 2. High-fiber diet 3. Consider hemorrhoid banding in her medical management of hemorrhoids 4. Follow up with primary care physician. JEFE CABRERA MD Sep 21, 2024 10:39
== END 2024-09-21 11:27 | disposition home or self-care (01) ==
LOC: GI 08:13
PROVIDERS: ATTEND Specialist
DX: Z12.11 Encounter for screening for malignant neoplasm of colon (principal); K63.5 Polyp of colon; K64.8 Other hemorrhoids; K62.1 Rectal polyp; I10 Essential (primary) hypertension; J44.9 Chronic obstructive pulmonary disease, unspecified; F41.9 Anxiety disorder, unspecified; Z88.0 Allergy status to penicillin; Z98.890 Other specified postprocedural states; Z80.8 Family history of malignant neoplasm of other organs or systems; Z87.891 Personal history of nicotine dependence; Z79.899 Other long term (current) drug therapy
CPT/HCPCS: 36415; 45380; 45385; 80053; 81001; 85025; 85610; 85730; 88305; J2704; J3010

== ENCOUNTER 2025-07-31 08:29 | Outpatient (CLI) | payer OTHER ==
[2025-07-31 08:46] LABS: Hematocrit 45.0 % (41.0-53.0); Hemoglobin 15.5 g/dL (13.5-17.5); Mean Corpuscular Hemoglobin 30.8 pg (28.0-32.0); Mean Corpuscular Volume 89.2 fL (80.0-100.0); Nucleated Red Blood Cells % 0.2 %
[2025-07-31 09:33] LABS: Alanine Aminotransferase 24 U/L (7-40); Albumin 4.5 g/dL (3.2-4.8); Alkaline Phosphatase 68 U/L (46-116); Anion Gap 10 (5-15); BUN/Creatinine Ratio 14.8 (10.0-20.0); Blood Urea Nitrogen 16 mg/dL (9-23); Calcium 9.4 mg/dL (8.7-10.4); Carbon Dioxide 29 mmol/L (20-31); Chloride 100 mmol/L (98-107); Potassium 4.3 mmol/L (3.5-5.1); Sodium 139 mmol/L (136-145); Total Protein 7.4 g/dL (5.7-8.2); Triglycerides 98 mg/dL (< 150)
[2025-07-31 09:34] LABS: Bilirubin, Total 0.7 mg/dL (0.2-1.0); Cholesterol 156 mg/dL (< 200); HDL Cholesterol 50 mg/dL (40-59)
[2025-07-31 09:36] LABS: Glucose 142 mg/dL (74-106)
[2025-07-31 09:52] LABS: Microalb/Creat Ratio, Urine 3.00
== END 2025-07-31 17:00 | disposition home or self-care (01) ==
LOC: LAB 08:29
PROVIDERS: ATTEND Nurse Practitioner Family
DX: I10 Essential (primary) hypertension (principal); E11.21 Type 2 diabetes mellitus with diabetic nephropathy; E78.5 Hyperlipidemia, unspecified; J96.11 Chronic respiratory failure with hypoxia
CPT/HCPCS: 36415; 80053; 80061; 82043; 82570; 83036; 84443; 85025

== ENCOUNTER 2025-09-02 12:14 | Outpatient (CLI) | payer OTHER ==
[2025-09-02 13:32] LABS: Free T4 (Free Thyroxine) 1.12 ng/dL (0.89-1.76)
== END 2025-09-02 17:00 | disposition home or self-care (01) ==
LOC: LAB 12:14
PROVIDERS: ATTEND Nurse Practitioner Family
DX: E03.9 Hypothyroidism, unspecified (principal)
CPT/HCPCS: 36415; 84439; 84443; 84480